=== PATIENT | female | born 1990 | race Caucasian/White ===

== ENCOUNTER 2023-09-23 15:35 | Emergency (ER) | payer OTHER, SELFPAY ==
[2023-09-23 15:42] VITALS: BP 96/74; PULSE 81; RESP 16; TEMP 36.6; O2SAT 100
--- NOTE | 2023-09-23 16:03 | ED.ANIMALBIT ---
HPI - Animal Bite General Chief Complaint: Animal Bite Stated Complaint: Dog Bite Source: patient Mode of arrival: ambulatory Limitations: no limitations History of Present Illness HPI narrative: 32-year-old female presented for complaint of a dog bite to the left inner knee. Onset just prior to arrival. She states 2 of her domestic dogs were fighting over food, she intervene, and was bit on the knee. UTD on tetanus. Dogs utd on vaccinations. Related Data Allergies Allergy/AdvReac Type Severity Reaction Status Date / Time No Known Allergies Allergy Mild Verified 02/09/23 13:58 Review of Systems Review of Systems: CONSTITUTIONAL: Denies body aches, fever, chills, or sweats. EYES: Denies visual changes, redness, or discharge. ENT: Denies rhinorrhea, congestion CARDIOVASCULAR: Denies chest pain, palpitations, or edema. RESPIRATORY: Denies cough or dyspnea. GASTROINTESTINAL: Denies abdominal pain, nausea, vomiting, or diarrhea. SKIN: Reports open wound to left knee MUSCULOSKELETAL: Denies back pain, joint pain, or myalgia. NEUROLOGIC: Denies headache, numbness, tingling, or weakness. [facility] Past Medical History Medical History control counseling Wellness examination Family History Family History Grandparent Diabetes mellitus Family history of malignant neoplasm Mother Family history of mental disorder Depression Hypertension Family history of elevated blood lipids Father Hypertension Family history of elevated blood lipids Social History Social History Smoking status: Former smoker Smoking end date: 09/28/16 Alcohol intake: current Drinks per week: 3 Substance use: never Comments At time of signature, I have reviewed and agree with nursing past medical, surgical, social and family history unless otherwise noted. Please see nursing chart for further information. There is no relevant family history pertinent to the presenting complaint Exam Narrative: GENERAL: Well-appearing ENT: Mucous membranes moist. Oropharynx without edema, erythema or lesions. NECK: Supple. No lymphadenopathy CHEST: Clear to auscultation. HEART: Regular rate and rhythm. SKIN: Warm, dry. Left medial knee with approx 1cm linear laceration, no gaping or active bleeding. No streaking or induration. Mild swelling surrounding the site. Distal to the lac is 2.5cm c-shaped superficial abrasion. NEURO: Alert and oriented x3. Course Course Emergency Course: Patient is aware of diagnosis, understands and agrees to treatment plan. Anticipatory guidance given. Patient agrees to follow-up as directed and is aware of reasons to seek care at the emergency department. Portions of this record may have been created with voice recognition software Level of Care: Express Care Visit Vital Signs Vital signs: Vital Signs Temperature 98 F 09/23/23 15:42 Pulse Rate 81 09/23/23 15:42 Respiratory Rate 16 09/23/23 15:42 Blood Pressure 96/74 L 09/23/23 15:42 Pulse Oximetry 100 09/23/23 15:42 Temperature 98 F 09/23/23 15:42 Pulse Rate 81 09/23/23 15:42 Respiratory Rate 16 09/23/23 15:42 Blood Pressure 96/74 L 09/23/23 15:42 Pulse Oximetry 100 09/23/23 15:42 Reviewed MDM - Animal Bite MDM Narrative Medical decision making narrative: Dog bite wound was cleansed, not a deep wound. Applied OSCAR and gauze banage. Discussed physical exam findings. Advised supportive measures and signs/symptoms to go to the ER. Pt is appropriate for outpt treatment and f/u. Differential Diagnosis Differential diagnosis: Likely dog bite Discharge Plan Discharge Clinical Impression: Dog bite Patient Disposition: Home, Self-Care Condition: Stable Instructions: Antibiotic Form, Animal Bite (ED) Additional Instructions:
== END 2023-09-23 16:15 | disposition home or self-care (01) ==
PROVIDERS: Emergency Provider Nurse Practitioner Family; PCP Family Medicine
DX: S81.012A Laceration without foreign body, left knee, initial encounter (principal); W54.0XXA Bitten by dog, initial encounter; Z87.891 Personal history of nicotine dependence
CPT/HCPCS: 99213; G0463